=== PATIENT | male | born 1990 | race Caucasian/White ===

== ENCOUNTER 2017-07-17 19:06 | Emergency (ER) | payer BC, OTHER ==
[2017-07-17 19:28] VITALS: BP 106/69; PULSE 79; RESP 18; TEMP 97.3
--- NOTE | 2017-07-17 20:08 | ED ---
General Adult HPI - General Chief complaint: Extremity Injury, Lower Stated complaint: ingrown toenail Time Seen by Provider: 07/17/17 19:40 Source: patient, RN notes reviewed Mode of arrival: ambulatory Limitations: no limitations - History of Present Illness Initial comments: 26 yo male presents to the ER with cc of ingrown left toe nail. Patient states he's been trying to fix it himself for the past few weeks but he is unable to tolerate the pain anymore. Patient is unable to see his wheel installer until Thursday. Patient states he was concerned due to the pain so he thought that he should be seen. Patient states there is no injury to the toe. Patient denies any fever chills.Patient denies any recent fever, chills, shortness of breath, chest pain, back pain, abdominal pain, nausea vomiting, numbness or tingling, dysuria or hematuria, constipation or diarrhea, headaches or visual changes, or any other current symptoms. - Related Data Previous Rx's Medication Instructions Recorded Cephalexin [Keflex] 500 mg PO Q6HR #40 cap 07/17/17 Allergies Allergy/AdvReac Type Severity Reaction Status Date / Time latex Allergy Rash/Hives Verified 07/18/16 14:38 Review of Systems ROS Statement: Those systems with pertinent positive or pertinent negative responses have been documented in the HPI. ROS Other: All systems not noted in ROS Statement are negative. Past Medical History Past Medical History: No Reported History History of Any Multi-Drug Resistant Organisms: None Reported Past Surgical History: No Surgical Hx Reported Past Psychological History: No Psychological Hx Reported Smoking Status: Never smoker Past Alcohol Use History: None Reported Past Drug Use History: None Reported General Exam - General Exam Comments Initial Comments: General: The patient is awake and alert, in no distress, and does not appear acutely ill. Neck: The neck is supple, there is no tenderness. Cardiovascular: There is a regular rate and rhythm. No murmur, rub or gallop is appreciated. Respiratory: Lungs are clear to auscultation, respirations are non-labored, breath sounds are equal. No wheezes, stridor, rales, or rhonchi. Musculoskeletal: Sensation intact with 2+ pulses at the worsening. Full range of motion of right foot and all toes. Patient does appear to have an ingrown toenail with some purulent type drainage to the right big toe. No associated streaking or redness. Neurological: CN II-XII intact, There are no obvious motor or sensory deficits. Coordination appears grossly intact. Speech is normal. Skin: Skin is warm and dry and no rashes or lesions are noted. Psychiatric: Normal mood and affect. Limitations: no limitations Course Vital Signs 07/17/17 19:25 Temperature 97.3 F L Pulse Rate 79 Respiratory 18 Rate Blood Pressure 106/69 O2 Sat by Pulse 97 Oximetry Procedures - Procedures Initial comment: That was obtained. The area was cleaned and prepped in a digital block was placed to the right big toe with 5 mL of lidocaine 2%. Patient had the area cleaned and prepped. Leg resection was performed and was some purulent material extracted. Patient tolerated the procedure well. Medical Decision Making - Medical Decision Making 26-year-old male presents for right ingrown toenail removal. This time we discussed close of the doctor. We discussed comparison all questions and dyspnea axis prescribed. The patient is a urine this plan all questions have been answered. He will be discharged home. Disposition Clinical Impression: Ingrown nail of great toe of right foot Disposition: HOME SELF-CARE Condition: Stable Instructions: Ingrown Nail (ED) Additional Instructions: Please use medication as discussed. Please follow up with family doctor if symptoms have not improved over the next two days. Please return to the emergency room if your symptoms increase or worsen or for any other concerns. Prescriptions: Cephalexin [Keflex] 500 mg PO Q6HR #40 cap Referrals: Minnie Jauregui DO [Primary Care Provider] - 1-2 days Time of Disposition: 20:17
== END 2017-07-17 20:34 | disposition home or self-care (01) ==
LOC: EC 19:06
DX: L60.0 Ingrowing nail (principal); Z91.040 Latex allergy status
CPT/HCPCS: 11750; 99282

== ENCOUNTER 2019-03-25 20:40 | Emergency (ER) | payer BC, OTHER ==
[2019-03-25 20:48] VITALS: BP 129/89; PULSE 72; RESP 18; TEMP 98.5
--- NOTE | 2019-03-25 21:05 | ED ---
General Adult HPI - General Source: patient, RN notes reviewed, old records reviewed Mode of arrival: ambulatory Limitations: no limitations <Tony Leo - Last Filed: 03/25/19 22:04> <Raine Us - Last Filed: 03/26/19 02:02> - General Chief complaint: Urogenital Stated complaint: UTI Time Seen by Provider: 03/25/19 20:56 - History of Present Illness Initial comments: 28-year-old male patient with no pertinent past history presents to ED with 1 day of dysuria, urinary frequency. Patient denies any other complaints. Patient denies any concern for states she has been infection. Patient denies any unprotected sex. Patient denies any pain intesticles. Patient denies any abdominal pain nausea vomiting diarrhea. Systemic: Pt denies fatigue, myalgia, fever/chills, rash. Pt denies weakness, night sweats, weight loss. Neuro: Pt denies headache, visual disturbances, syncope or pre-syncope. HEENT: Pt denies ocular discharge or irritation, otalgia, rhinorrhea, pharyngitis or notable lymphadenopathy. Cardiopulmonary: Pt denies chest pain, SOB, heart palpitations, dyspnea on exertion. Abdominal/GI: Pt denies abdominal pain, n/v/d. : Pt denies dDenies new onset urinary or bowel incontinence. MSK: Pt denies myalgia, loss of strength or function in extremities. Neuro: Pt denies new onset weakness, paresthesias. (Tony Leo) - Related Data Home Medications Medication Instructions Recorded Confirmed No Known Home Medications 03/25/19 03/25/19 Allergies Allergy/AdvReac Type Severity Reaction Status Date / Time latex Allergy Rash/Hives Verified 03/25/19 20:54 Review of Systems ROS Other: All systems not noted in ROS Statement are negative. <Tony Leo - Last Filed: 03/25/19 22:04> ROS Other: All systems not noted in ROS Statement are negative. <Raine Us - Last Filed: 03/26/19 02:02> ROS Statement: Those systems with pertinent positive or pertinent negative responses have been documented in the HPI. Past Medical History Past Medical History: No Reported History History of Any Multi-Drug Resistant Organisms: None Reported Past Surgical History: No Surgical Hx Reported Past Psychological History: No Psychological Hx Reported Smoking Status: Never smoker Past Alcohol Use History: None Reported Past Drug Use History: None Reported <Tony Leo - Last Filed: 03/25/19 22:04> General Exam Limitations: no limitations <Tony Leo - Last Filed: 03/25/19 22:04> - General Exam Comments Initial Comments: Constitutional: NAD, AOX3, Pt has pleasant affect. HEENT: NC/AT, trachea midline, neck supple, no lymphadenopathy. Posterior pharynx non erythematous, without exudates. External ears appear normal, without discharge. Mucous membranes moist. Eyes PERRLA, EOM intact. There is no scleral icterus. No pallor noted. Cardiopulmonary: RRR, no murmurs, rubs or gallops, no JVD noted. Lungs CTAB in anterior and posterior bland. No peripheral edema. Abdominal exam: Abdomen soft and non-distended. Abdomen non-tender to palpation in all 4 quadrants. Bowel sounds active in LLQ. No hepatosplenomegaly. No ecchymosis Neuro: CN II-XII grossly intact. No nuchal rigidity. MSK: No posterior calf tenderness bilaterally, homans sign negative bilaterally. Posterior tibialis and radial pulse +2 bilaterally. Sensation intact in upper and lower extremities. Full active ROM in upper and lower extremities, 5/5 stregnth. (Tony Leo) Course Vital Signs 03/25/19 20:45 Temperature 98.5 F Pulse Rate 72 Respiratory 18 Rate Blood Pressure 129/89 O2 Sat by Pulse 98 Oximetry Medical Decision Making <Tony Leo - Last Filed: 03/25/19 22:04> <Raine Us - Last Filed: 03/26/19 02:02> - Medical Decision Making 28-year-old male patient with no pertinent past history presents to ED with 1 day of dysuria, urinary frequency. Patient denies any other complaints. Patient denies any concern for states she has been infection. Patient denies any unprotected sex. Patient denies any pain intesticles. Patient denies any abdominal pain nausea vomiting diarrhea. Patient vital signs stable, afebrile. Physical exam did not display acute pathology. Laboratory investigations reveal negative UA. Patient states that he does not have concern for STI as he has not been previously sexually active. Patient glucose 93. Patient states that dysuria has resolved. Patient will be discharged and will follow up with primary care provider in 1-2 days. Urine culture pending. Patient return to ER if conditions worsen. Case discussed with Dr. Us. (Tony Leo) I was available for consultation in the emergency department. The history and physical exam were done by the midlevel provider. I was consulted for this patient's care. I reviewed the case with the midlevel provider and based on their presentation of the patient, I agree with the assessment, medical decision making and plan of care as documented. Chart was dictated using [employer] dictation software. Attempts were made to correct any dictation errors however some typographical errors may persist. (Raine Us) - Lab Data Lab Results 03/25/19 03/25/19 Range/Units 21:14 21:52 POC Glucose (mg/dL) 93 (75-99) mg/dL POC Glu Dietetic Technician Registered ID Ina Dejesus Urine Color Colorless Urine Appearance Clear (Clear) Urine pH 6.0 (5.0-8.0) Ur Specific [place] 1.000 L (1.001-1.035) Urine Protein Negative (Negative) Urine Glucose (UA) Negative (Negative) Urine Ketones Negative (Negative) Urine Blood Negative (Negative) Urine Nitrite Negative (Negative) Urine Bilirubin Negative (Negative) Urine Urobilinogen <2.0 (<2.0) mg/dL Ur Leukocyte Esterase Negative (Negative) Disposition Is patient prescribed a controlled substance at d/c from ED?: No <Tony Leo - Last Filed: 03/25/19 22:04> <Raine Us - Last Filed: 03/26/19 02:02> Clinical Impression: Dysuria Disposition: HOME SELF-CARE Condition: Stable Instructions (If sedation given, give patient instructions): Dysuria (ED) Additional Instructions: Patient to adhere to previously discussed treatment plan and will take medication(s) as directed. Patient to follow up with PCP in 1-2 days. Patient to return to ED if symptoms do not improve. Return to ER condition worsens. Avoid irritants such as caffeine. Stay well- hydrated. Follow-up with primary care provider. Referrals: Minnie Jauregui DO [Primary Care Provider] - 1-2 days
[2019-03-25 21:36] LABS: Appearance,Urine Clear (Clear); Bilirubin,Urine Negative (Negative); Blood,Urine Negative (Negative); Color,Urine Colorless; Glucose,Urine (UA) Negative (Negative); Ketones,Urine Negative (Negative); Leukocyte Esterase,Urine Negative (Negative); Nitrite,Urine Negative (Negative); Protein,Urine Negative (Negative); Urobilinogen,Urine <2.0 mg/dL (<2.0)
[2019-03-25 21:55] LABS: Glucose,Whole Blood 93 mg/dL (75-99)
[2019-03-27 15:26] LABS: C. trachomatis,PCR Negative (Neg,Equiv); Chlamydia trachomatis Source Urine
[2019-03-27 15:29] LABS: N. gonorrhoeae,PCR Negative (Neg,Equiv); Neisseria Source Urine
== END 2019-03-25 22:13 | disposition home or self-care (01) ==
LOC: EC 20:40
DX: R30.0 Dysuria (principal); R35.0 Frequency of micturition; Z91.040 Latex allergy status
CPT/HCPCS: 36415; 81003; 87086; 87491; 87591; 99284

== ENCOUNTER 2019-03-31 15:05 | Emergency (ER) | payer OTHER ==
[2019-03-31 15:08] VITALS: TEMP 98.2
[2019-03-31] MEDS ORDERED: LIDOCAINE 1% INJ 10MG/ML (20 ML MDV) SQ ONE (15:40)
--- NOTE | 2019-03-31 16:13 | ED ---
General Adult HPI - General Chief complaint: Extremity Injury, Lower Stated complaint: toe pain Time Seen by Provider: 03/31/19 15:12 Source: patient Mode of arrival: ambulatory Limitations: no limitations - History of Present Illness Initial comments: Patient is a 28-year-old female presenting to the emergency department with an ingrown toenail on his right first digit of his foot. Patient states that he had his toenail removed for times the last time being roughly 4 months ago. Patient states the first 3 times were partial removals but last time was a full nail removal. Patient states the inflammation started 4 days ago and is slowly progress. Patient reports the pain and inflammation is only localized to the medial aspect of the toenail. Patient reports the lateral aspect of the toenail is normal and he was able to clip it on time. Patient denies taking any medication. - Related Data Previous Rx's Medication Instructions Recorded Hydrocodone/Acetaminophen [[place] 1 tab PO Q6HR PRN #12 tab 03/31/19 5-325] Allergies Allergy/AdvReac Type Severity Reaction Status Date / Time latex Allergy Rash/Hives Verified 03/31/19 15:08 Review of Systems ROS Statement: Those systems with pertinent positive or pertinent negative responses have been documented in the HPI. ROS Other: All systems not noted in ROS Statement are negative. Past Medical History Past Medical History: No Reported History History of Any Multi-Drug Resistant Organisms: None Reported Past Surgical History: No Surgical Hx Reported Past Psychological History: No Psychological Hx Reported Smoking Status: Never smoker Past Alcohol Use History: None Reported Past Drug Use History: None Reported General Exam Limitations: no limitations General appearance: alert, in no apparent distress Head exam: Present: atraumatic, normocephalic, normal inspection Eye exam: Present: normal appearance, PERRL, EOMI. Absent: scleral icterus, conjunctival injection ENT exam: Present: normal exam Neck exam: Present: normal inspection Respiratory exam: Present: normal lung sounds bilaterally. Absent: respiratory distress, wheezes, rales Cardiovascular Exam: Present: regular rate, normal rhythm, normal heart sounds Extremities exam: Present: normal inspection, full ROM Right Hip exam: Present: normal inspection, full ROM Upper Leg exam: Present: normal inspection, full ROM Knee exam: Present: normal inspection, full ROM Lower Leg exam: Present: normal inspection, full ROM Ankle exam: Present: normal inspection, full ROM Foot/Toe exam: Present: tenderness (First digit), swelling (Minor swelling first digit), erythema. Absent: abrasion, laceration, ecchymosis, deformity, crepitus, tenderness at base of 5th metatarsal (First digit), nail avulsion, subungual hematoma Neurological exam: Present: alert, oriented X3 Psychiatric exam: Present: normal affect, normal mood Skin exam: Present: warm, normal color Course Vital Signs 03/31/19 15:06 Temperature 98.2 F Pulse Rate 105 H Respiratory 20 Rate Blood Pressure 122/77 O2 Sat by Pulse 99 Oximetry Medical Decision Making - Medical Decision Making Patient was 8-year-old male presenting to the emergency department with an ingrown nail on the right first digit. Patient was locally anesthetized with lidocaine and partial toenail removal was performed. Patient advised to follow proper wound care. Patient advised to follow-up primary care. Patient given ibuprofen 600 and Hardin 5 immediately after procedure. Patient will be discharged with 12 tablets of Hardin. Patient advised to return to emergency department if symptoms worsen. Case discussed with physician. Disposition Clinical Impression: Toenail avulsion Disposition: HOME SELF-CARE Condition: Stable Is patient prescribed a controlled substance at d/c from ED?: No Referrals: Minnie Jauregui DO [Primary Care Provider] - 1-2 days Time of Disposition: 17:00
[2019-03-31] MEDS ORDERED: IBUPROFEN 600 MG TAB PO STA (16:31)
[2019-03-31] MEDS ORDERED: HYDROcodone/APAP 5-325MG 1 EACH TAB PO STA (16:42)
[2019-03-31 17:25] VITALS: BP 124/79; PULSE 95; RESP 18
== END 2019-03-31 17:24 | disposition home or self-care (01) ==
LOC: EC 15:05
DX: S91.201A Unspecified open wound of right great toe with damage to nail, initial encounter (principal); Z91.040 Latex allergy status; X58.XXXA Exposure to other specified factors, initial encounter
CPT/HCPCS: 99283; 11750; J2001

== ENCOUNTER 2019-08-17 23:35 | Emergency (ER) | payer OTHER ==
[2019-08-18] MEDS ORDERED: CEPHALEXIN 500MG STARTER PACK 4 CAP BTL PO STA (00:21)
[2019-08-18] MEDS ORDERED: KETOROLAC 30 MG/ML 1 ML VIAL IM STA (00:21)
[2019-08-18] MEDS ORDERED: ACET/COD 300 MG/30 MG STARTER PACK 6 TAB BTL PO STA (00:21)
--- NOTE | 2019-08-18 00:24 | ED ---
Extremity Problem HPI - General Chief complaint: Extremity Problem,Nontraumatic Stated complaint: L Foot ingrown toe nail Time Seen by Provider: 08/18/19 00:05 Source: patient Mode of arrival: ambulatory Limitations: no limitations - History of Present Illness Initial comments: 28-year-old male patient presents to the emergency department today for evalu ation of ingrown toenail to the left great toe. Patient states that this started bothering him this morning. Patient states he did attempt to remove the toenail himself. He does not believe he got all of it. He denies a fever or chills. States he is having throbbing pain to the left great toe. Denies history of ingrown toenail to this foot. Patient denies any recent rash, shortness breath, chest pain, abdominal pain, nausea, vomiting, diarrhea, constipation, back pain, numbness, tingling, dizziness, weakness, hematuria, dysuria, urinary urgency, urinary frequency, headache, visual changes, or any other complaints. - Related Data Previous Rx's Medication Instructions Recorded Hydrocodone/Acetaminophen [[place] 1 tab PO Q6HR PRN #12 tab 03/31/19 5-325] Cephalexin [Keflex] 500 mg PO Q6HR #40 cap 08/18/19 Allergies Allergy/AdvReac Type Severity Reaction Status Date / Time latex Allergy Rash/Hives Verified 08/17/19 23:51 Review of Systems ROS Statement: Those systems with pertinent positive or pertinent negative responses have been documented in the HPI. ROS Other: All systems not noted in ROS Statement are negative. Past Medical History Past Medical History: No Reported History History of Any Multi-Drug Resistant Organisms: None Reported Past Surgical History: No Surgical Hx Reported Past Psychological History: No Psychological Hx Reported Smoking Status: Never smoker Past Alcohol Use History: None Reported Past Drug Use History: None Reported General Exam Limitations: no limitations General appearance: alert, in no apparent distress, other (This is a well-deve loped, well-nourished adult male patient in no acute distress. Vital signs upon presentation are temperature 97.9F, pulse 98, respiration 16, blood pressure 113/81, pulse ox 96% on room air.) Respiratory exam: Present: normal lung sounds bilaterally. Absent: respiratory distress, wheezes, rales, rhonchi, stridor Cardiovascular Exam: Present: regular rate, normal rhythm, normal heart sounds. Absent: systolic murmur, diastolic murmur, rubs, gallop, clicks Extremities exam: Present: full ROM, normal capillary refill, other (There is erythema and swelling noted to the left lateral nailfold on the left great toe. There is no purulent drainage. No evidence of ingrown toenail at this time. No abscess. Skin is otherwise pink, warm, and dry. Cap refills less than 3 seconds. Pedal and posttibial pulses 2+ and equal bilaterally.). Absent: normal inspection, tenderness, pedal edema, joint swelling, calf tenderness Neurological exam: Present: alert, oriented X3, CN II-XII intact Psychiatric exam: Present: normal affect, normal mood Skin exam: Present: warm, dry, intact, normal color. Absent: rash Course Vital Signs 08/17/19 08/18/19 23:47 01:20 Temperature 97.9 F 98.2 F Pulse Rate 98 87 Respiratory 16 18 Rate Blood Pressure 113/81 122/86 O2 Sat by Pulse 96 96 Oximetry Medical Decision Making - Medical Decision Making 28-year-old male patient presented to the emergency department today for evaluation of ingrown toenail to left great toe. Physical examination did reveal erythema and swelling to the left lateral nailfold on the left great toe. No. Drainage. She did remove ingrown toenail at home, this does appear to be satisfactory. He'll be started on Keflex for infection. He is instructed to follow-up with podiatry for further evaluation as soon as possible. He'll be given a starter pack for Tylenol with Codeine for pain control. He is instructed to take Tylenol and Motrin otherwise. Return parameters were discussed in detail. He verbalizes understanding and agrees with this plan. Disposition Clinical Impression: Ingrown toenail of left foot Disposition: HOME SELF-CARE Condition: Good Instructions (If sedation given, give patient instructions): Ingrown Nail (ED) Additional Instructions: Complete antibiotic prescription in full. Continue to soak foot in warm water twice daily. Follow up with the special events manager as soon as possible. Return to the emergency department for any new, worsening, or concerning symptoms. Prescriptions: Cephalexin [Keflex] 500 mg PO Q6HR #40 cap Is patient prescribed a controlled substance at d/c from ED?: No Referrals: Minnie Jauregui DO [Primary Care Provider] - 1-2 days Russell Carlson DPM [STAFF PHYSICIAN] - 1-2 days Time of Disposition: 00:23
[2019-08-18 01:24] VITALS: BP 122/86; PULSE 87; RESP 18; TEMP 98.2
== END 2019-08-18 01:20 | disposition home or self-care (01) ==
LOC: EC 23:35
DX: L60.0 Ingrowing nail (principal); Z91.040 Latex allergy status
CPT/HCPCS: 99283; 96372; J1885

== ENCOUNTER 2021-07-09 19:41 | Emergency (ER) | payer OTHER ==
[2021-07-09 20:20] VITALS: BP 124/78; PULSE 98; RESP 20; TEMP 98.5
--- NOTE | 2021-07-09 20:58 | XR ---
EXAMINATION TYPE: XR chest 2V DATE OF EXAM: 07/09/2021 COMPARISON: 12/02/2014 HISTORY: Cough and congestion TECHNIQUE: 2 views FINDINGS: Heart and mediastinum are normal. Lungs are clear. Diaphragm is normal. Bony thorax is inta ct. IMPRESSION: Normal chest. No change.
--- NOTE | 2021-07-09 22:33 | ED ---
URI HPI - General Chief Complaint: Upper Respiratory Infection Stated Complaint: cough,SOB Time Seen by Provider: 07/09/21 22:20 Source: patient Mode of arrival: ambulatory Limitations: no limitations - History of Present Illness Initial Comments: 30-year-old male presents to emergency department with chief complaint of a cough and congestion. Patient reports the symptoms began about 2 days ago. Patient reports a nonproductive cough but denies any difficulty breathing or chest pain. Does report occasional bilateral otalgia but denies any sore thr oat. He does report clear bilateral rhinorrhea. Denies any fevers or chills. Possible Covid exposure. Denies any other symptoms. - Related Data Previous Rx's Medication Instructions Recorded Hydrocodone/Acetaminophen [[place] 1 tab PO Q6HR PRN #12 tab 03/31/19 5-325] cephALEXin [Keflex] 500 mg PO Q6HR #40 cap 08/18/19 Allergies Allergy/AdvReac Type Severity Reaction Status Date / Time latex Allergy Rash/Hives Verified 07/09/21 20:20 Review of Systems ROS Statement: Those systems with pertinent positive or pertinent negative responses have been documented in the HPI. ROS Other: All systems not noted in ROS Statement are negative. Past Medical History Past Medical History: No Reported History History of Any Multi-Drug Resistant Organisms: None Reported Past Surgical History: No Surgical Hx Reported Past Psychological History: No Psychological Hx Reported Smoking Status: Never smoker Past Alcohol Use History: None Reported Past Drug Use History: None Reported General Exam Limitations: no limitations General appearance: alert, in no apparent distress, obese Head exam: Present: atraumatic, normocephalic, normal inspection Eye exam: Present: normal appearance, PERRL Pupils: Present: normal accommodation ENT exam: Present: normal exam, normal oropharynx, mucous membranes moist, TM's normal bilaterally, normal external ear exam Neck exam: Present: normal inspection, full ROM. Absent: tenderness Respiratory exam: Present: normal lung sounds bilaterally. Absent: respiratory distress Cardiovascular Exam: Present: regular rate, normal rhythm, normal heart sounds. Absent: systolic murmur Extremities exam: Present: normal inspection, full ROM, normal capillary refill. Absent: tenderness Back exam: Present: normal inspection, full ROM. Absent: tenderness, CVA tenderness (R), CVA tenderness (L) Neurological exam: Present: alert, oriented X3 Psychiatric exam: Present: normal affect, normal mood Skin exam: Present: warm, dry, intact, normal color Course Vital Signs 07/09/21 20:17 Temperature 98.5 F Pulse Rate 98 Respiratory 20 Rate Blood Pressure 124/78 O2 Sat by Pulse 97 Oximetry Medical Decision Making - Medical Decision Making 30-year-old male presents to emergency Department with a chief complaint of cough and congestion. Physical examination, lungs are clear to auscultation. ENT examination is unremarkable. Chest x-ray is negative. Negative Covid. Patient likely has acute bronchitis. Advised [id number] symptomatic relief. Advised PCP follow-up. Case discussed with physician. - Lab Data Lab Results 07/09/21 Range/Units 20:23 Coronavirus (PCR) Not Detected (Not Detectd) Disposition Clinical Impression: Bronchitis Disposition: HOME SELF-CARE Condition: Stable Instructions (If sedation given, give patient instructions): Upper Respiratory Infection (ED) Additional Instructions: Please return to the Emergency Department if symptoms worsen or any other concerns. Is patient prescribed a controlled substance at d/c from ED?: No Referrals: Jose Raul Moody MD [Primary Care Provider] - 1-2 days Time of Disposition: 22:33
== END 2021-07-09 23:32 | disposition home or self-care (01) ==
LOC: EC 19:41
DX: J40 Bronchitis, not specified as acute or chronic (principal); Z20.822 Contact with and (suspected) exposure to COVID-19; Z91.040 Latex allergy status
CPT/HCPCS: 71046; 87635; 99285

== ENCOUNTER 2023-10-04 18:50 | Emergency (ER) | payer OTHER ==
[2023-10-04] MEDS ORDERED: FLUORESCEIN STRIPS 1 MG STRIP BOTH EYES ONE (19:23)
[2023-10-04] MEDS ORDERED: TOBRAMYCIN 0.3% OPHTH OINT 3.5 GM TUBE BOTH EYES STA (19:23)
[2023-10-04 19:47] VITALS: BP 124/87; PULSE 90; RESP 16; TEMP 98.4
[2023-10-04] MEDS: PROPARACAINE 0.5% OPHTH DROPS 15 ML BTL BOTH EYES SCH ×2 (19:52→19:53)
--- NOTE | 2023-10-04 20:04 | ED ---
General Adult HPI - General Chief complaint: Eye Problems Stated complaint: Right eye pain Time Seen by Provider: 10/04/23 19:20 Source: patient, RN notes reviewed Mode of arrival: ambulatory Limitations: no limitations - History of Present Illness Initial comments: 32 year-old male with no past medical history presents to the emergency Department chief complaint of right eye problem. Patient reports 3 days ago he had some reports it has been worse. It is worse when he blinks. She denies any fevers or purulent discharge or eye drainage, sneezing or cough. Denies contact lens use. - Related Data Previous Rx's Medication Instructions Recorded Hydrocodone/Acetaminophen [[place] 1 tab PO Q6HR PRN #12 tab 03/31/19 5-325] cephALEXin [Keflex] 500 mg PO Q6HR #40 cap 08/18/19 Allergies Allergy/AdvReac Type Severity Reaction Status Date / Time latex Allergy Rash/Hives Verified 10/04/23 19:13 Review of Systems ROS Statement: Those systems with pertinent positive or pertinent negative responses have been documented in the HPI. ROS Other: All systems not noted in ROS Statement are negative. Past Medical History Past Medical History: No Reported History History of Any Multi-Drug Resistant Organisms: None Reported Past Surgical History: No Surgical Hx Reported Past Psychological History: No Psychological Hx Reported Smoking Status: Never smoker Past Alcohol Use History: None Reported Past Drug Use History: None Reported General Exam - General Exam Comments Initial Comments: General: Alert, in no acute distress Head: atraumatic normocephalic. Eyes PERRL, EOMI intact, mucous membranes moist, without fluorescein uptake. She was easily right eye is 20/30. Eye pressure 21. Respiratory: Lungs clear to auscultation bilaterally Cardiovascular: Heart rate regular rate and rhythm Abdominal: Soft without guarding or rebound Extremities: Normal inspection with full range of motion and normal capillary refill Neuroogic: alert and oriented 3, CN II-XII intact, able to ambulate with steady gait Skin: warm dry and intact with normal color Limitations: no limitations Course Vital Signs 10/04/23 19:10 Temperature 98.4 F Pulse Rate 90 Respiratory 16 Rate Blood Pressure 124/87 O2 Sat by Pulse 97 Oximetry Medical Decision Making - Medical Decision Making Was pt. sent in by a medical professional or institution (, PA, SALES PROJECT ENGINEER, urgent care, hospital, or halfway...) When possible be specific @ -[No] Did you speak to anyone other than the patient for history (EMS, parent, family, police, friend...)? What history was obtained from this source @ -Mother Did you review nursing and triage notes (agree or disagree)? Why? @ -[I reviewed and agree with nursing and triage notes] Were old charts reviewed (outside hosp., previous admission, EMS record, old EKG, old radiological studies, urgent care reports/EKG's, halfway records)? Report findings @ -[No old charts were reviewed] Differential Diagnosis (chest pain, altered mental status, abdominal pain women, abdominal pain men, vaginal bleeding, weakness, fever, dyspnea, syncope, headache, dizziness, GI bleed, back pain, seizure, CVA, palpatations, mental health, musculoskeletal)? @ -[not applicable] EKG interpreted by me (3pts min.). @ -[As above] X-rays interpreted by me (1pt min.). @ -[None done] CT interpreted by me (1pt min.). @ -[None done] U/S interpreted by me (1pt. min.). @ -[None done] What testing was considered but not performed or refused? (CT, X-rays, U/S, labs)? Why? @ -[None] What meds were considered but not given or refused? Why? @ -[None] Did you discuss the management of the patient with other professionals (professionals i.e. , PA, SALES PROJECT ENGINEER, lab, RT, psych nurse, manager social media, environmental assistant, teacher, chief commercial officer, assistant case manager)? Give summary @ -[No] Was smoking cessation discussed for >3mins.? @ -[No] Was critical care preformed (if so, how long)? @ -[No] Were there social determinants of health that impacted care today? How? (Homelessness, low income, unemployed, alcoholism, drug addiction, transportation, low edu. Level, literacy, decrease access to med. care, snf, rehab)? @ -[No] Was there de-escalation of care discussed even if they declined (Discuss DNR or withdrawal of care, Hospice)? DNR status @ -[No] What co-morbidities impacted this encounter? (DM, HTN, Smoking, COPD, CAD, Cancer, CVA, ARF, Chemo, Hep., AIDS, mental health diagnosis, sleep apnea, morbid obesity)? @ -[None] Was patient admitted / discharged? Hospital course, mention meds given and route, prescriptions, significant lab abnormalities, going to OR and other pertinent info. @ -Discharged. This is a 32-year-old male presents emergency Department with right eye pain. Patient with a history and physical exam. No fluorescein uptake on fleurescine exam. Eye pressure 21 bilaterally. Visual acuity 20/30. Small external hordeolum to right lower leg. No pustule noted. Patient provided TobraDex for prophylaxis.) Depressions discussed at length. Patient discharged in stable condition. Case discussed with Dr. Atkinson [facility] who agrees with POC Undiagnosed new problem with uncertain prognosis? @ -[No] Drug Therapy requiring intensive monitoring for toxicity (Heparin, Nitro, Insulin, Cardizem)? @ -[No] Were any procedures done? @ -[No] Diagnosis/symptom? @ -Right External Hordeolum Acute, or Chronic, or Acute on Chronic? @ -Acute Uncomplicated (without systemic symptoms) or Complicated (systemic symptoms)? @ -Uncomplicated Side effects of treatment? @ -[No] Exacerbation, Progression, or Severe Exacerbation? @ -[No] Poses a threat to life or bodily function? How? (Chest pain, [place], [place], pneumonia, PE, COPD, DKA, ARF, appy, cholecystitis, CVA, Diverticulitis, Homicidal, Suicidal, threat to staff... and all critical care pts) @ -Low likelihood Disposition Clinical Impression: Mary external Disposition: HOME SELF-CARE Condition: Stable Instructions (If sedation given, give patient instructions): Mary (ED) Additional Instructions: Please apply warm compresses Please take Tylenol or Motrin for pain Please return to the nearest emergency department if worsening symptoms Is patient prescribed a controlled substance at d/c from ED?: No Referrals: Jose Raul Moody MD [Primary Care Provider] - 1-2 days Time of Disposition: 20:04
== END 2023-10-04 20:08 | disposition home or self-care (01) ==
LOC: EC 18:50
DX: H00.012 Hordeolum externum right lower eyelid (principal); Z91.040 Latex allergy status
CPT/HCPCS: 99283

== ENCOUNTER 2025-04-08 12:49 | Emergency (ER) | payer OTHER ==
[2025-04-08 12:52] VITALS: TEMP 98.8
[2025-04-08 13:07] LABS: Basophils # (A) 0.08 10*3/uL (0.00-0.10); Basophils % (A) 0.9 %; Eosinophils # (A) 0.25 10*3/uL (0.04-0.35); Eosinophils % (A) 2.7 %; HCT 47.2 % (39.6-50.0); HGB 16.4 g/dL (13.0-17.0); Lymphocytes # (A) 3.66 10*3/uL (0.90-5.00); Lymphocytes % (A) 39.9 %; MCH 27.5 pg (27.0-32.0); MCHC 34.7 g/dL (32.0-37.0); MCV 79.2 fL (80.0-97.0); Mean Platelet Volume 10.5 fL (9.5-12.2); Monocytes # (A) 0.47 10*3/uL (0.20-1.00); Monocytes % (A) 5.1 %; Neutrophils % (A) 51.3 %; Platelet Count 285 10*3/uL (140-440); RBC 5.96 10*6/uL (4.40-5.60); RDW 12.5 % (11.5-14.5); WBC 9.17 10*3/uL (4.50-10.00)
[2025-04-08 13:16] LABS: Partial Thromboplastin Time 26.6 sec (22.0-30.0); Prothrombin Time 10.8 sec (10.0-12.5)
--- NOTE | 2025-04-08 13:17 | XR ---
Chest, 2 view. CLINICAL INDICATION: Male, 34 years old with history of Chest Pain COMPARISON: 07/09/2021 TECHNIQUE: PA and lateral views the chest are obtained. FINDINGS: The lungs are clear and there is no consolidative or interstitial opacity. There is no pleural effusion or pneumothorax. The heart, pulmonary vasculature, mediastinum and stephanie appear normal. The osseous structures are intact. IMPRESSION: No significant abnormality seen. No acute cardiopulmonary disease. [facility], , 04/08/2025 1:15 PM
[2025-04-08 13:18] LABS: ALT 54 U/L (4-49); AST 28 U/L (17-59); African American GFR (CKD) >90 (>60 ml/min/1.73 sqM); Albumin 4.3 g/dL (3.5-5.0); Alkaline Phosphatase 62 U/L (38-126); Anion Gap 11 mmol/L; Blood Urea Nitrogen 17 mg/dL (9-20); Calcium 9.7 mg/dL (8.4-10.2); Carbon Dioxide 20 mmol/L (22-30); Chloride 107 mmol/L (98-107); Glucose 141 mg/dL (74-99); Non-African American GFR(CKD) >90 (>60 ml/min/1.73 sqM); Potassium 3.9 mmol/L (3.5-5.1); Sodium 138 mmol/L (137-145); Total Bilirubin 0.6 mg/dL (0.2-1.3); Total Protein 7.7 g/dL (6.3-8.2)
--- NOTE | 2025-04-08 14:07 | ED ---
Chest Pain HPI - General Source: patient, RN notes reviewed Mode of arrival: ambulatory Limitations: no limitations <Kit You - Last Filed: 04/08/25 14:04> <Maldonado Lopez - Last Filed: 04/08/25 14:49> - General Chief Complaint: Chest Pain Stated Complaint: chest pain Time Seen by Provider: 04/08/25 13:04 - History of Present Illness Initial Comments: Quick note: This is a 34-year-old male presenting with mother for chest pain x 3 days. Patient states pain started several days prior when picking up a heavy object he attributed to a chest strain at the time before symptoms worsened upon standing 3 days ago. Describes current pain as constant and squeezing (6.5/10). Denies radiating pain, shortness of breath, dizziness, nausea. Patient denies significant cardiac history besides known small patent ying of septal wall. Mother states that she has personal history of hypertrophic cardiomyopathy. Endorses grandfather having significant cardiac history as well. (Kit You) - Related Data Previous Rx's Medication Instructions Recorded Hydrocodone/Acetaminophen [[place] 1 tab PO Q6HR PRN #12 tab 03/31/19 5-325] cephALEXin [Keflex] 500 mg PO Q6HR #40 cap 08/18/19 Ibuprofen [Motrin] 600 mg PO Q8HR PRN #24 tab 04/08/25 Allergies Allergy/AdvReac Type Severity Reaction Status Date / Time latex Allergy Rash/Hives Verified 04/08/25 12:52 Review of Systems ROS Other: All systems not noted in ROS Statement are negative. <Kit You - Last Filed: 04/08/25 14:04> ROS Other: All systems not noted in ROS Statement are negative. <Maldonado Lopez - Last Filed: 04/08/25 14:49> ROS Statement: Those systems with pertinent positive or pertinent negative responses have been documented in the HPI. Past Medical History Past Medical History: No Reported History History of Any Multi-Drug Resistant Organisms: None Reported Past Surgical History: No Surgical Hx Reported Past Psychological History: No Psychological Hx Reported Smoking Status: Never smoker Past Alcohol Use History: None Reported Past Drug Use History: None Reported <Kit You - Last Filed: 04/08/25 14:04> General Exam Limitations: no limitations <Kit You - Last Filed: 04/08/25 14:04> General appearance: alert, in no apparent distress Head exam: Present: atraumatic, normocephalic Eye exam: Present: normal appearance, PERRL ENT exam: Present: normal exam Neck exam: Present: normal inspection. Absent: tenderness, meningismus Respiratory exam: Present: normal lung sounds bilaterally, chest wall tenderness (Reproducible with movement). Absent: respiratory distress, wheezes Cardiovascular Exam: Present: regular rate, normal rhythm GI/Abdominal exam: Present: soft. Absent: distended, tenderness, guarding Extremities exam: Present: normal inspection, normal capillary refill Neurological exam: Present: alert, oriented X3 Psychiatric exam: Present: normal affect, normal mood Skin exam: Present: warm, dry <Maldonado Lopez - Last Filed: 04/08/25 14:49> - General Exam Comments Initial Comments: Visual Physical Exam Vital signs reviewed General: Well-appearing, nontoxic, no acute distress. Head: Normocephalic, atraumatic Eyes: PERRLA, EOMI ENT: Airway patent Chest: Nonlabored breathing Skin: No visual rash, normal skin tone Neuro: Alert and oriented 3 Musculoskeletal: No gross abnormalities (Kit You) Course Vital Signs 04/08/25 12:50 Temperature 98.8 F Pulse Rate 94 Respiratory 17 Rate Blood Pressure 158/110 O2 Sat by Pulse 95 Oximetry Chest Pain MDM <Kit You - Last Filed: 04/08/25 14:04> <Maldonado Lopez - Last Filed: 04/08/25 14:49> - MDM I completed the quick note portion of this chart signed SARAH Wiggins (Kit You) Was pt. sent in by a medical professional or institution (KALEB Vivar, PLANT OPERATOR HELPER, urgent care, hospital, or halfway...) When possible be specific @ -No Did you speak to anyone other than the patient for history (EMS, parent, family, police, friend...)? What history was obtained from this source @ -No Did you review nursing and triage notes (agree or disagree)? Why? @ -I reviewed and agree with nursing and triage notes Were old charts reviewed (outside hosp., previous admission, EMS record, old EKG, old radiological studies, urgent care reports/EKG's, halfway records)? Report findings @ -No old charts were reviewed Differential Diagnosis (chest pain, altered mental status, abdominal pain women, abdominal pain men, vaginal bleeding, weakness, fever, dyspnea, syncope, headache, dizziness, GI bleed, back pain, seizure, CVA, palpatations, mental health, musculoskeletal)? @ -Not applicable EKG interpreted by me (3pts min.). @ -EKG: Sinus rhythm rate of 87, MS interval 172, QRS duration 93, QTc [address] segment elevation X-rays interpreted by me (1pt min.). @ -Chest x-ray is negative for acute cardiopulmonary findings. CT interpreted by me (1pt min.). @ -None done U/S interpreted by me (1pt. min.). @ -None done What testing was considered but not performed or refused? (CT, X-rays, U/S, labs)? Why? @ -None What meds were considered but not given or refused? Why? @ -None Did you discuss the management of the patient with other professionals (professionals i.e. , PA, PLANT OPERATOR HELPER, lab, RT, psych nurse, director of social work, orthopedics nurse, teacher, grant officer, nurse case manager)? Give summary @ -No Was smoking cessation discussed for >3mins.? @ -No Was critical care preformed (if so, how long)? @ -No Were there social determinants of health that impacted care today? How? (Homelessness, low income, unemployed, alcoholism, drug addiction, transportation, low edu. Level, literacy, decrease access to med. care, care home, rehab)? @ -No Was there de-escalation of care discussed even if they declined (Discuss DNR or withdrawal of care, Hospice)? DNR status @ -No What co-morbidities impacted this encounter? (DM, HTN, Smoking, COPD, CAD, Cancer, CVA, ARF, Chemo, Hep., AIDS, mental health diagnosis, sleep apnea, morbid obesity)? @ -None Was patient admitted / discharged? Hospital course, mention meds given and r oute, prescriptions, significant lab abnormalities, going to OR and other pertinent info. @ -34-year-old male with right-sided mid chest pain after lifting a heavy object. Pain has been present for 3 days after this injury. No difficulty breathing. No vomiting. No diaphoresis. Patient otherwise healthy. Pain is worse with movement and worse with position. EKG is sinus rhythm without any ST segment elevation or depression. Chest x-ray is clear. He has a normal CBC, normal CMP, negative troponin. His pain is consistent with chest wall strain. He is given anti-inflammatories and return parameters. Undiagnosed new problem with uncertain prognosis? @ -No Drug Therapy requiring intensive monitoring for toxicity (Heparin, Nitro, Insulin, Cardizem)? @ -No Were any procedures done? @ -No Diagnosis/symptom? @Chest wall strain Acute, or Chronic, or Acute on Chronic? @ -Default Uncomplicated (without systemic symptoms) or Complicated (systemic symptoms)? @ -Default Side effects of treatment? @ -No Exacerbation, Progression, or Severe Exacerbation? @ -No Poses a threat to life or bodily function? How? (Chest pain, [place], [place], pneumonia, PE, COPD, DKA, ARF, appy, cholecystitis, CVA, Diverticulitis, Homicidal, Suicidal, threat to staff... and all critical care pts) @ -No (Maldonado Lopez) Disposition <Kit You - Last Filed: 04/08/25 14:04> Is patient prescribed a controlled substance at d/c from ED?: No Time of Disposition: 14:49 <Maldonado Lopez - Last Filed: 04/08/25 14:49> Clinical Impression: Chest pain Disposition: HOME SELF-CARE Condition: Good Instructions (If sedation given, give patient instructions): Chest Pain (ED), Costochondritis (ED) Prescriptions: Ibuprofen [Motrin] 600 mg PO Q8HR PRN #24 tab PRN Reason: Pain Referrals: Jose Raul Moody MD [Primary Care Provider] - 1-2 days
[2025-04-08] MEDS: KETOROLAC 15 MG/ML 1 ML VIAL IVP STA (14:52)
[2025-04-08 15:14] VITALS: BP 133/73; PULSE 90; RESP 18
== END 2025-04-08 15:14 | disposition home or self-care (01) ==
LOC: EC 12:49
DX: S29.011A Strain of muscle and tendon of front wall of thorax, initial encounter (principal); Z91.040 Latex allergy status; X58.XXXA Exposure to other specified factors, initial encounter
CPT/HCPCS: 36415; 93005; 80053; 83735; 84484; 85025; 85610; 85730; 71046; 99285; 96374; J1885